=== PATIENT | female | born 1950 | race Caucasian/White ===

== ENCOUNTER 2016-08-31 10:05 | Emergency (ER) | payer MEDICARE, BC | END 2016-08-31 12:26 | disposition home or self-care (01) | DX: S92.514A Nondisplaced fracture of proximal phalanx of right lesser toe(s), initial encounter for closed fracture (principal); W01.0XXA Fall on same level from slipping, tripping and stumbling without subsequent striking against object, initial encounter; Y92.029 Unspecified place in mobile home as the place of occurrence of the external cause; R03.0 Elevated blood-pressure reading, without diagnosis of hypertension; K21.9 Gastro-esophageal reflux disease without esophagitis ==

== ENCOUNTER 2017-09-09 11:03 | Outpatient (CLI) | payer MEDICARE, BC ==
--- NOTE | 2017-09-14 16:05 | Mammography Report ---
DIGITAL SCREENING MAMMOGRAM: 09/09/2017 CLINICAL INDICATION: A 66-year-old for screening. COMPARISON: Films from [place], [place] dated 01/23/2015, 06/13/2009, 03/07/2008. TECHNIQUE: Routine CC and MLO projections were obtained of the breasts. FINDINGS: Parenchymal tissue within the breasts is predominantly fatty replaced. There are no dominant masses, suspicious microcalcifications, or secondary signs of malignancy. In comparison to the previous studies, there are no significant changes. IMPRESSION: NO MAMMOGRAPHIC EVIDENCE OF MALIGNANCY. NO SIGNIFICANT INTERVAL CHANGES. RECOMMENDATION: Screening mammography is recommended annually. BIRADS CATEGORY 1 - NEGATIVE. STANDARD QUALIFYING STATEMENTS: 1. This examination was reviewed with the aid of Computed-Aided Detection (CAD). 2. A negative or benign imaging report should not delay biopsy if clinically suspicious findings are present. Consider surgical consultation if warranted. More than 5% of cancers are not identified by imaging. 3. Dense breasts may obscure an underlying neoplasm. TD: 09/14/2017 16:04
== END 2017-09-09 11:04 | disposition home or self-care (01) ==
LOC: DI 11:03
PROVIDERS: ATTEND Internal Medicine
DX: Z12.31 Encounter for screening mammogram for malignant neoplasm of breast (principal)
CPT/HCPCS: 77067

== ENCOUNTER 2018-10-28 14:55 | Outpatient (CLI) | payer MEDICARE, BC ==
--- NOTE | 2018-10-28 15:41 | XRAY Report ---
Reason: RIGHT SHOULDER PAIN Procedure Date: 10/28/2018 Accession Number: [id number] / [id number] Procedure: XR - Shoulder 3 View RT CPT Code: FULL RESULT: EXAM: RIGHT SHOULDER RADIOGRAPHY EXAM DATE: 10/28/2018 03:16 PM. CLINICAL HISTORY: Right shoulder pain. COMPARISON: None. TECHNIQUE: 3 views. FINDINGS: Bones: The bones are qualitatively osteopenic; this limits evaluation for underlying fractures or masses. No definite fracture or mass is detected. Joints: The glenohumeral and acromioclavicular joints are normally located. There are minimal degenerative changes of the acromioclavicular joint. Soft tissues: The visualized hemithorax is unremarkable. No soft tissue swelling. IMPRESSION: Osteopenic appearance especially of the humerus and glenoid. No fracture or dislocation is detected. [facility]
== END 2018-10-28 14:56 | disposition home or self-care (01) ==
LOC: DI 14:55
PROVIDERS: ATTEND Internal Medicine
DX: M25.511 Pain in right shoulder (principal)

== ENCOUNTER 2021-07-15 10:41 | Outpatient (CLI) | payer MEDICARE, BC ==
--- NOTE | 2021-07-15 11:16 | XRAY Report ---
PROCEDURE: Shoulder 3 View LT INDICATIONS: L SHOULDER AND UPPER ARM PAIN TECHNIQUE: 3 views of the shoulder were acquired. COMPARISON: None. FINDINGS: BONES: No acute, displaced fracture. The joint spaces are maintained. SOFT TISSUES: No focal abnormality or appreciable pneumothorax. IMPRESSION: 1.No acute osseous abnormality. Reviewed by: Chilo Atkins MD on 07/15/2021 11:15 AM [facility] Approved by: Chilo Atkins MD on 07/15/2021 11:15 AM [facility] Station ID: [id number]
== END 2021-07-15 10:42 | disposition home or self-care (01) ==
LOC: DI 10:41
PROVIDERS: ATTEND Internal Medicine
DX: M25.519 Pain in unspecified shoulder (principal)

== ENCOUNTER 2021-09-12 08:45 | Outpatient (CLI) | payer MEDICARE, BC ==
--- NOTE | 2021-09-12 12:23 | XRAY Report ---
PROCEDURE: Humerus LT INDICATIONS: LEFT SHOULDER PAIN TECHNIQUE: 2 views of the humerus were acquired. COMPARISON: Shoulder x-ray 322 FINDINGS: Bones: No fractures or dislocations. No suspicious bony lesions. Soft tissues: No suspicious soft tissue calcifications. IMPRESSION: Unremarkable exam. If concern persists, CT/MR is recommended. Reviewed by: Pam Harmon MD on 09/12/2021 11:22 AM [facility] Approved by: Pam Harmon MD on 09/12/2021 11:22 AM [facility] Station ID: [id number]
== END 2021-09-12 23:59 | disposition home or self-care (01) ==
LOC: DI.WOS 08:45
PROVIDERS: ATTEND Physician Assistant
DX: M25.512 Pain in left shoulder (principal)

== ENCOUNTER 2023-02-22 14:59 | Outpatient (CLI) | payer MEDICARE, BC ==
--- NOTE | 2023-02-22 17:01 | XRAY Report ---
PROCEDURE: Foot 3 View BILAT INDICATIONS: BL FOOT PAIN TECHNIQUE: 6 views of the bilateral feet were acquired. COMPARISON: X-ray right foot 08/31/2016 FINDINGS: Bones: No fractures or dislocations. No suspicious bony lesions. Partially visualized tibial and fi bular hardware on the left. Diffusely decreased osseous mineralization. Bilateral plantar calcaneal s purring. Mild right posterior calcaneal spurring. Mild interphalangeal joint degeneration. Soft tissues: No suspicious soft tissue calcifications or masses. IMPRESSION: No acute osseous abnormalities. Mild degenerative changes of the interphalangeal joints. Partially vi sualized left tibia and fibula hardware. Reviewed by: Fitz Butt MD on 02/22/2023 4:59 PM PDT Approved by: Fitz Butt MD on 02/22/2023 4:59 PM PDT Station ID: [id number]
== END 2023-02-22 15:00 | disposition home or self-care (01) ==
LOC: DI 14:59
PROVIDERS: ATTEND Podiatrist
DX: M19.071 Primary osteoarthritis, right ankle and foot (principal); M19.072 Primary osteoarthritis, left ankle and foot